=== PATIENT | male | born 1980 | race American Indian/Alaskan Native ===

== ENCOUNTER 2017-02-05 21:28 | Emergency (ER) | payer SELFPAY ==
--- NOTE | 2017-02-06 01:31 | Emergency Department Report ---
Abscess Boil HPI - HPI Chief Complaint: Skin/Abscess/Foreign Body Stated Complaint: BOIL ON FACE Duration: 1 Week Location: Other (left jaw) Severity: Mild History: Yes Pain, Yes Purulent Drainage, No Fever, No Numbness, No Foreign Body , No Previous History, No Insect Bite HPI: 36 year old male presents to ED with left jaw abscess x1 week. patient is stable, neurologically intact and in no acute distress. patient denies being diabetic. Home Medications: Previous Rx's Medication Instructions Recorded Last Taken Type Cephalexin [Keflex] 500 mg PO Q12HR #14 cap 02/06/17 Unknown Rx Meloxicam [Mobic] 7.5 mg PO QDAY #7 tablet 02/06/17 Unknown Rx Allergies/Adverse Reactions: Allergies Allergy/AdvReac Type Severity Reaction Status Date / Time aspirin Allergy Angioedema Verified 02/05/17 23:26 ED Review of Systems ROS: Stated complaint: BOIL ON FACE Other details as noted in HPI Constitutional: denies: chills, fever Eyes: denies: eye pain, eye discharge, vision change ENT: denies: ear pain, throat pain, dental pain Respiratory: denies: cough, shortness of breath, wheezing Cardiovascular: denies: chest pain, palpitations Endocrine: no symptoms reported Gastrointestinal: denies: abdominal pain, nausea, diarrhea Genitourinary: denies: urgency, dysuria Musculoskeletal: denies: back pain, joint swelling, arthralgia Skin: other (left jaw abscess). denies: rash Neurological: denies: headache, weakness, paresthesias Psychiatric: denies: anxiety, depression Hematological/Lymphatic: denies: easy bleeding, easy bruising ED Past Medical Hx - Past Medical History Previous Medical History?: No - Surgical History Past Surgical History?: Yes Additional Surgical History: Right Index Finger repair. - Social History Smoking Status: Current Every Day Smoker Substance Use Type: None - Medications Home Medications: Home Medications Medication Instructions Recorded Confirmed Last Taken Type Cephalexin [Keflex] 500 mg PO Q12HR #14 cap 02/06/17 Unknown Rx Meloxicam [Mobic] 7.5 mg PO QDAY #7 tablet 02/06/17 Unknown Rx ED Abscess Boil Physical Exam - Exam General: Vital signs noted. No distress. Alert and acting appropriately. Size: >5 cm Exam: Yes Tenderness, Yes Fluctuance, Yes Surrounding Cellulites/Erythema (mild) , Yes Normal Neurologic Exam, Yes Normal Circulation, No Lymphangitis, No Crepitation, No Heart Murmur I & D Note - I & D Note I & D Note: left jaw prepped with betadine. 1% lido with epi applied to area for numbing. 11 blade scalpel utilized for incision and moderate amount of draingage obtained. patient tolerated procedure well. packing applied to site. patient agrees and understands to return to ED within 2-3 days for recheck. ED Course Vital Signs 02/05/17 23:21 Temperature 99.3 F Pulse Rate 96 H Respiratory 16 Rate Blood Pressure 148/91 Blood Pressure 148/91 [Left] O2 Sat by Pulse 100 Oximetry Critical care attestation.: If time is entered above; I have spent that time in minutes in the direct care of this critically ill patient, excluding procedure time. ED Medical Decision Making - Lab Data Result diagrams: 02/06/17 01:45 02/06/17 01:45 Labs 02/06/17 02/06/17 01:45 01:45 WBC 9.5 RBC 4.85 Hgb 13.4 Hct 39.7 MCV 82 L MCH 28 MCHC 34 RDW 13.5 Plt Count 271 Sodium 137 Potassium 5.7 H Chloride 100.9 Carbon Dioxide 21 L Anion Gap 21 BUN 14 Creatinine 0.9 Estimated GFR > 60 BUN/Creatinine Ratio 15.55 Glucose 93 Calcium 9.1 blood cultures pending - Radiology Data Radiology results: report reviewed CT facial bones with contrast: Osseous structures are intact without an acute fracture or dislocation. there is soft tissue swelling in the left posterior mandibular region. Fluid collection is most consistent with forming an abscess. There is cellulitis surrounding this region. - Medical Decision Making 36 year old male presents to ED with left outer jaw abscess. patient is not diabetic. CT reveals that osseous structures are intact. patient has tolerated I &D well and has received IV antibiotics during ED visit. patient has blood cultures pending. patient will be placed on PO antibiotics and agrees to return to ED within 2-3 days for recheck. patient is stable, neurologically intact and in no acute distress. ED Disposition Clinical Impression: Abscess of jaw, left Disposition: [id number] TO HOME OR SELFCARE Is pt being admited?: No Does the pt Need Aspirin: No Condition: Stable Instructions: Incision and Drainage (ED) Additional Instructions: Please return to ED within 2-3 days for recheck Prescriptions: Cephalexin [Keflex] 500 mg PO Q12HR #14 cap Meloxicam [Mobic] 7.5 mg PO QDAY #7 tablet Referrals: PRIMARY CARE, [Primary Care Provider] - 3-5 Days Forms: Work/School Release Form(ED)
[2017-02-06 01:55] LABS: Hematocrit 39.7 % (35.5-45.6); Hemoglobin 13.4 gm/dl (11.8-15.2); Mean Corpuscular HGB Conc 34 % (32-34); Mean Corpuscular Hemoglobin 28 pg (28-32); Mean Corpuscular Volume 82 fl (84-94); Platelet Count 271 K/mm3 (140-440); Red Blood Count 4.85 M/mm3 (3.65-5.03); Red Cell Distribution Width 13.5 % (13.2-15.2); White Blood Count 9.5 K/mm3 (4.5-11.0)
[2017-02-06 02:17] LABS: BUN/Creatinine Ratio 15.55; Blood Urea Nitrogen 14 mg/dL (9-20); Calcium 9.1 mg/dL (8.4-10.2); Carbon Dioxide 21 mmol/L (22-30); Chloride 100.9 mmol/L (98-107); Glucose 93 mg/dL (75-100); Sodium 137 mmol/L (137-145)
[2017-02-06 02:27] LABS: Anion Gap 21 mmol/L; Potassium 5.7 mmol/L (3.6-5.0)
--- NOTE | 2017-02-06 03:46 | Cat Scan Report ---
FINAL REPORT PROCEDURE: CT FACIAL BONES W CON TECHNIQUE: Computerized tomography of the facial bones and soft tissues with axial and coronal sections was performed from the cranial aspect of the frontal sinuses to the caudal portion of the mandible following the IV injection of iodinated nonionic contrast. HISTORY: abscess, facial swelling COMPARISON: No prior studies are available for comparison. FINDINGS: Bones: No significant abnormality. Paranasal sinuses: Clear. Soft tissues: There is soft tissue swelling over the left posterior mandibular region. A small 19 x 15 millimeter fluid collection in this region is most consistent with a forming abscess. There is cellulitis in this area.. Abnormal enhancement: None. Other: None. IMPRESSION: The osseous structures are intact without an acute fracture or dislocation. There is soft tissue swelling in the left posterior mandibular region. A small 19 x 15 millimeter fluid collection is most consistent with a forming abscess. There is cellulitis surrounding this region.
[2017-02-06] MEDS ORDERED: NORCO 10/325 PO ONE (03:50)
[2017-02-06] MEDS ORDERED: CLEOCIN 900 MG/50 mL 900 MG/50 ML BAG IV ONE (03:59)
[2017-02-06] MEDS ORDERED: XYLOCAINE 1%/ EPI 1:100,000 INFILTRATI NR (04:00)
[2017-02-06] MEDS ORDERED: TRIPLE ANTIBIOTIC TP ONE (04:50)
[2017-02-06 05:53] VITALS: BP 147/93
== END 2017-02-06 05:53 | disposition home or self-care (01) ==
LOC: ED 21:28
DX: M27.2 Inflammatory conditions of jaws (principal); F17.200 Nicotine dependence, unspecified, uncomplicated; Z88.6 Allergy status to analgesic agent
CPT/HCPCS: 10060; 36415; 70487; 80048; 85027; 96365; 99284; Q9967; A6250